=== PATIENT | male | born 1960 | race Caucasian/White ===

== ENCOUNTER 2018-12-03 15:55 | Emergency (ER) | payer OTHER ==
[2018-12-03 16:22] VITALS: TEMP 98.6; BMI 30.4
--- NOTE | 2018-12-03 16:55 | PDOC ---
History of Present Illness - General Chief Complaint: Injury Stated Complaint: INJURY Time Seen by Provider: 12/03/18 16:52 History Source: Patient Exam Limitations: No Limitations Past History - Travel Traveled outside of the country in the last 30 days: No Close contact w/someone who was outside of country & ill: No - Past Medical History Allergies/Adverse Reactions: Allergies Allergy/AdvReac Type Severity Reaction Status Date / Time No Known Allergies Allergy Verified 12/03/18 16:20 Home Medications: Ambulatory Orders Levothyroxine [Synthroid] 225 mcg PO DAILY 10/15/12 Atorvastatin Ca [Lipitor] 20 mg PO HS 12/03/18 COPD: No Thyroid Disease: Yes - Surgical History Appendectomy: Yes - Immunization History Td Vaccination: Yes (10/15/12) - Suicide/Smoking/Psychosocial Hx Smoking Status: No Smoking History: Never smoked Number of Cigarettes Smoked Daily: 0 *Physical Exam - Vital Signs Last Vital Signs Temp Pulse Resp BP Pulse Ox 98.6 F 83 18 125/77 98 12/03/18 16:19 12/03/18 16:19 12/03/18 16:19 12/03/18 16:19 12/03/18 16:19 ED Treatment Course - LABORATORY CBC & Chemistry Diagram: 12/03/18 17:39 12/03/18 17:39 *DC/Admit/Observation/Transfer Diagnosis at time of Disposition: Foot pain, right, 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 Knee pain, left Qualifiers: Chronicity: acute Qualified Code(s): M25.562 - Pain in left knee Fall Qualifiers: Encounter type: initial encounter Qualified Code(s): W19.XXXA - Unspecified fall, initial encounter - Discharge Dispostion Disposition: HOME Condition at time of disposition: Good Decision to Admit order: No - Referrals Referrals: Ramesh Cruz MD [Primary Care Provider] - Lionel Mclean DO [Staff Physician] - - Patient Instructions Printed Discharge Instructions: DI for Knee Sprain, DI for Foot Sprain Additional Instructions: You were seen in the ER today for right foot and left knee pain. The results of your labs and imaging today were normal and did not show any fractures. Please follow-up with your primary care doctor and orthopedic (Dr. Mclean) within 1-2 days to discuss your visit and make sure your symptoms have improved. Please return to the ER if you have any worsening pain, numbness/tingling/changes of color to your foot, development of fevers or chills, loss of consciousness, inability to tolerate food or fluids, or any other concerns. - Post Discharge Activity Forms/Work/School Notes: Back to Work
[2018-12-03] MEDS ORDERED: ACETAMINOPHEN 325 MG TABLET (FP) PO ONE (17:33)
[2018-12-03] MEDS ORDERED: ACETAMINOPHEN 325 MG TABLET (FP) ONE (17:36)
[2018-12-03 18:05] LABS: BASO % 0.4 % (0-2.0); HEMATOCRIT 47.3 % (35.4-49); MCH 29.7 pg (25.7-33.7); MCHC 33.9 g/dl (32.0-35.9); MEAN CELL VOLUME 87.4 fl (80-96); MEAN PLT VOLUME 7.7 fl (7.5-11.1); MONO % 7.9 % (3.8-10.2); NEUT % 67.7 % (42.8-82.8); PLATELET COUNT 193 K/MM3 (134-434); RBC 5.41 M/mm3 (4.00-5.60); RDW 13.4 % (11.9-15.9); WHITE BLOOD COUNT 7.3 K/mm3 (4.0-10.0)
[2018-12-03 18:28] LABS: ALBUMIN 3.2 g/dl (3.4-5.0); ALK PHOS 86 U/L (45-117); ANION GAP 7 MMOL/L (8-16); BILIRUBIN,TOTAL 0.3 mg/dL (0.2-1); BLOOD UREA NITROGEN 27.4 mg/dL (7-18); CALCIUM 8.3 mg/dL (8.5-10.1); CHLORIDE 108 mmol/L (98-107); CO2 28 mmol/L (21-32); CREATININE 1.2 mg/dL (0.55-1.3); GLUCOSE,RANDOM 110 mg/dL (74-106); MAGNESIUM 2.3 mg/dL (1.8-2.4); POTASSIUM 4.1 mmol/L (3.5-5.1); SGOT/AST 35 U/L (15-37); SGPT/ALT 77 U/L (13-61); SODIUM 142 mmol/L (136-145); TOT PROT 6.6 g/dl (6.4-8.2)
--- NOTE | 2018-12-03 19:12 | PDOC ---
Documentation entered by Dennis Myers SCRIBE, acting as scribe for Brianna Tucker MD. Brianna Tucker MD: This documentation has been prepared by the Louis kothari Xhesika, SCRIBE, under my direction and personally reviewed by me in its entirety. I confirm that the documentation accurately reflects all work, treatment, procedures, and medical decision making performed by me. Attending Attestation - Resident Resident Name: Jennifer Castellanos - HPI HPI: 12/03/18 18:12 The patient is a 58 year old male with a significant medical history of hypothyroidism and HLD who present to the ED with L knee and R foot pain s/p fall. The patient states he was at work walking through an aisle, got dizzy and fell. The patient states he was wearing steel toe boots, however, he hit his R foot after trying to catch his fall. The patient notes his dizziness has since self resolved. The patient denies chest pain, shortness of breath, headache. Denies fever, chills, nausea, vomiting, diarrhea and constipation. Denies dysuria, frequency, urgency and hematuria. Allergies: NKDA, NKA Past surgical history: Appendectomy PCP: Ramesh Varela - Physicial Exam PE: 12/03/18 18:36 WNWD 58-YEAR-OLD MALE WHO IS SEATED COMFORTABLY ON A GURNEY but has c/o rt foot pain and left knee pain s/p fall at work head ncat neck no midline tendernss lungs cta b/l cvs [id number] abd nontender torso no flank pain ,no ribcage pain extremities there is mild swellingand tenderness to his rt big te and dorsal aspect of his rt foot,good pulses,cap refill < 2 seconds there is left knee tenderness but no patellar ballottment , moving all extremities skin warm and dry, no lacerations neuro axox4,ambulatory 12/03/18 18:47 - Medical Decision Making 12/03/18 19:10 RADIOGRAPHS REVIEWED AND THERE ARE NO ACUTE FRACTURES pt d/c home amd will follow up w ortho if he has any persistent pain
[2018-12-03 19:14] VITALS: BP 118/77; PULSE 71
--- NOTE | 2018-12-04 09:59 | EKG ---
Test Reason : Blood Pressure : / mmHG Vent. Rate : 074 BPM Atrial Rate : 074 BPM P-R Int : 166 ms QRS Dur : 092 ms QT Int : 368 ms P-R-T Axes : 028 -07 026 degrees QTc Int : 408 ms NORMAL SINUS RHYTHM NORMAL ECG WHEN COMPARED WITH ECG OF 26-OCT-2004 19:57, NO SIGNIFICANT CHANGE WAS FOUND Confirmed by TONIO FELIX MD ([id number]) on 12/04/2018 9:58:56 AM Referred By: Confirmed By:TONIO FELIX MD
== END 2018-12-03 19:14 | disposition home or self-care (01) ==
LOC: JER 15:55
DX: S89.82XA Other specified injuries of left lower leg, initial encounter (principal); S99.821A Other specified injuries of right foot, initial encounter; W18.39XA Other fall on same level, initial encounter; Y93.89 Activity, other specified; Y92.69 Other specified industrial and construction area as the place of occurrence of the external cause; Y99.0 Civilian activity done for income or pay
CPT/HCPCS: 36415; 73560-TC-LT-FY; 73630-TC-RT-FY; 80053; 82550; 82553; 83735; 84484; 85025; 93005; 93010; 99282-25

== ENCOUNTER 2020-07-18 16:00 | Emergency (ER) | payer OTHER ==
[2020-07-18] MEDS ORDERED: BAMLANIVIMAB 700 MG in SODIUM CHLORIDE 250 ML IVPB ONE (16:18)
[2020-07-18 16:21] VITALS: BMI 33.7
[2020-07-18 16:52] LABS: HEMOGLOBIN 15.6 GM/dL (11.7-16.9); MCH 29.2 pg (25.7-33.7); MCHC 33.9 g/dl (32.0-35.9); MEAN CELL VOLUME 86.3 fl (80-96); PLATELET COUNT 185 K/MM3 (134-434); RBC 5.33 M/mm3 (4.00-5.60); RDW 13.1 % (11.9-15.9)
[2020-07-18 17:18] LABS: POTASSIUM 4.7 mmol/L (3.5-5.1)
[2020-07-18 17:19] LABS: CALCIUM 8.1 mg/dL (8.5-10.1)
[2020-07-18 17:20] LABS: BLOOD UREA NITROGEN 15.8 mg/dL (7-18)
[2020-07-18 17:23] LABS: CREATININE 1.1 mg/dL (0.55-1.3)
[2020-07-18 18:08] VITALS: TEMP 98
[2020-07-18 20:41] VITALS: BP 133/68; PULSE 72
== END 2020-07-18 20:42 | disposition home or self-care (01) ==
LOC: JER 16:00
DX: U07.1 COVID-19 (principal)
CPT/HCPCS: 36415; 80048; 85027; 99284-25; M0239; Q0239